=== PATIENT | female | born 1975 | race Caucasian/White ===

== ENCOUNTER 2024-01-24 16:59 | Emergency (ER) | payer OTHER ==
[~2024-01-24] VITALS: Ht 175.2 cm; Wt 102.2 kg
[2024-01-24] MEDS ORDERED: ACETAMINOPHEN 325 MG TAB PO ONE (17:05)
[2024-01-24] MEDS ORDERED: diphenhydrAMINE hydrochloride 50 MG/ML VIAL IV ONE (17:05)
[2024-01-24] MEDS ORDERED: SODIUM CHLORIDE 0.9% 1,000 ML IV ONE ×2 (17:05→18:20)
[2024-01-24] MEDS ORDERED: Metoclopramide Hydrochloride 10 MG/2 ML VIAL IV ONE (17:05)
[2024-01-24] MEDS ORDERED: Ketorolac Tromethamine 15 MG/ML VIAL IV ONE (17:05)
[2024-01-24] MEDS ORDERED: LOSARTAN POTASS25 M1 PO (17:08)
[2024-01-24] MEDS ORDERED: ASPIRIN ADULT L81 M2 PO (17:08)
[2024-01-24] MEDS ORDERED: PAXIL40 M1 PO (17:13)
[2024-01-24] MEDS ORDERED: LANTUS100 UNIT/1 SQ (17:13)
[2024-01-24] MEDS ORDERED: PROTONIX20 MG PO (17:13)
[2024-01-24 17:33] LABS: BASO # 0.1 10*3/uL (0.0-0.1); BASO % 0.5 % (0.0-1.0); EOS # 0.2 10*3/uL (0.0-0.4); EOS % 2.1 % (1.0-4.0); HEMATOCRIT 40.5 % (37.0-47.0); LYMPH # 2.3 10*3/uL (1.3-4.4); LYMPH % 20.1 % (27.0-41.0); MEAN CELL VOLUME 81.7 fl (81.0-99.0); MEAN CORPUSCULAR HGB 27.4 pg (27.0-31.0); MEAN CORPUSCULAR HGB CONC 33.6 g/dl (33.0-37.0); MEAN PLATELET VOLUME 9.3 fl (9.6-12.3); MONO # 0.5 10*3/uL (0.1-1.0); MONO % 4.6 % (3.0-9.0); NEUT # 8.4 10*3/uL (2.3-7.9); NEUT % 72.4 % (47.0-73.0); PLATELET COUNT AUTOMATED 356 10*3/uL (130-400); RED BLOOD COUNT 4.96 10*6/uL (4.10-5.10); RED CELL DISTRI WIDTH 14.1 % (0-14.5); WHITE BLOOD COUNT 11.6 10*3/uL (4.8-10.8)
[2024-01-24 17:51] LABS: CHLORIDE 98 mmol/L (98-107); POTASSIUM 2.9 mmol/L (3.4-5.1)
[2024-01-24 18:03] LABS: BUN < 5 mg/dl (9-23)
[2024-01-24] MEDS ORDERED: POTASSIUM CHLORIDE IN WATER 100 ML IV SCH (19:00)
[2024-01-24] MEDS ORDERED: Acetaminophen/Hydrocodone 5 MG/325 MG TABLET PO ONE (19:15)
[2024-01-24] MEDS ORDERED: Ondansetron4 MG PO (20:49)
[2024-01-24] MEDS ORDERED: Ondansetron 4 MG 2 TAB ED PACK PO SCH (20:55)
== END 2024-01-24 21:11 | disposition home or self-care (01) ==
LOC: ED 16:59
PROVIDERS: Nurse Practitioner Family
DX: G43.909 Migraine, unspecified, not intractable, without status migrainosus (principal); E87.6 Hypokalemia; F32.A Depression, unspecified; F41.9 Anxiety disorder, unspecified; K21.9 Gastro-esophageal reflux disease without esophagitis; E11.9 Type 2 diabetes mellitus without complications; I10 Essential (primary) hypertension; Z88.8 Allergy status to other drugs, medicaments and biological substances; Z88.2 Allergy status to sulfonamides; Z87.891 Personal history of nicotine dependence; W01.0XXA Fall on same level from slipping, tripping and stumbling without subsequent striking against object, initial encounter